=== PATIENT | female | born 1945 | race Caucasian/White ===

== ENCOUNTER 2017-10-14 10:21 | Day surgery (SDC) | payer MEDICARE ==
[~2017-10-14] VITALS: Ht 182.9 cm; Wt 96.8 kg
[2017-10-14] MEDS ORDERED: SODIUM CHLORIDE 0.9% 1,000 ML IV ONE (11:30)
[2017-10-14] MEDS ORDERED: METO25TA35 PO (11:38)
[2017-10-14] MEDS ORDERED: TAMO20TA PO (11:38)
[2017-10-14] MEDS ORDERED: BUME0.5T PO (11:38)
[2017-10-14] MEDS ORDERED: SPIR25TA3 PO (11:38)
[2017-10-14] MEDS ORDERED: APIX5TAB PO (11:38)
[2017-10-14] MEDS ORDERED: POTA10CA PO (11:38)
[2017-10-14] MEDS ORDERED: FENT-58 TP (11:38)
[2017-10-14] MEDS ORDERED: VENL150C PO (11:38)
[2017-10-14] MEDS ORDERED: TIZA4CAP PO (11:38)
[2017-10-14] MEDS ORDERED: PROPOFOL 10 MG/ML, 20ML ONE (12:42)
== END 2017-10-14 14:20 ==
LOC: CACL 10:21 → EDSTATUS 12:15 → CACL 14:20
PROVIDERS: ATTEND Internal Medicine Cardiovascular Disease
DX: I34.0 Nonrheumatic mitral (valve) insufficiency (principal); I07.1 Rheumatic tricuspid insufficiency; F32.9 Major depressive disorder, single episode, unspecified; Z88.1 Allergy status to other antibiotic agents; Z88.8 Allergy status to other drugs, medicaments and biological substances
CPT/HCPCS: 93312; 93321; 93325; J2704

== ENCOUNTER 2017-11-09 10:05 | Day surgery (SDC) | payer MEDICARE ==
[~2017-11-09] VITALS: Ht 180.3 cm; Wt 93.0 kg
[~2017-11-09 10:05] MED LIST: APIX5TAB PO; BUME0.5T PO; FENT-58 TP; METO25TA35 PO; POTA10CA PO; SPIR25TA3 PO; TAMO20TA PO; TIZA4CAP PO; VENL150C PO
[2017-11-09] MEDS ORDERED: LIDOCAINE-MPF 2% ,5ML ONE (10:55)
[2017-11-09] MEDS ORDERED: MIDAZOLAM 1 MG/ML, 5ML ONE (10:55)
[2017-11-09] MEDS ORDERED: DIPHENHYDRAMINE 50 MG/ML, 1ML ONE (10:55)
[2017-11-09] MEDS ORDERED: FENTANYL PF 100 MCG/2ML ONE (10:55)
[2017-11-09] MEDS ORDERED: SODIUM CHLORIDE 0.9% 1,000 ML IV ONE (10:58)
[2017-11-09] MEDS ORDERED: ASPIRIN 325 MG TABLET EC PO ONE (11:00)
[2017-11-09 11:17] VITALS: BP 96/74
[2017-11-09] MEDS ORDERED: PLEASE ENTER HEIGHT AND WEIGHT MC SCH (11:30)
== END 2017-11-09 12:45 | disposition home or self-care (01) ==
LOC: CACL 10:05
PROVIDERS: ATTEND Internal Medicine Cardiovascular Disease
DX: Z02.9 Encounter for administrative examinations, unspecified (principal)
CPT/HCPCS: J2250; J3010; J3490; J1200

== ENCOUNTER 2018-01-10 11:00 | Inpatient (IN) | payer MEDICARE ==
[~2018-01-10] VITALS: Ht 177.8 cm; Wt 102.6 kg
[2018-01-10 12:15] VITALS: BP 102/71
[2018-01-10 12:51] VITALS: BP 111/76
[2018-01-10] MEDS: FENTANYL REMOVE PATCH NOTE XX SCH (13:21)
[2018-01-10] MEDS ORDERED: SODIUM BICARBONATE 8.4% 154 MEQ in DEXTROSE 5% 846 ML IV SCH (13:30)
[2018-01-10] MEDS ORDERED: GLUCAGON 1 MG IM PRN (14:00)
[2018-01-10] MEDS ORDERED: DEXTROSE 4 GM TAB.CHEW PO PRN (14:00)
[2018-01-10] MEDS ORDERED: DEXTROSE 50%, 50ML SYRINGE IVPush PRN (14:00)
[2018-01-10] MEDS: TIZANIDINE 4MG TABLET PO SCH ×2 (15:41→22:05)
[2018-01-10] MEDS: SODIUM BICARBONATE 8.4% 154 MEQ in DEXTROSE 5% 846 ML IV SCH (17:15)
[2018-01-10 20:00] VITALS: BP 102/66
[2018-01-10] MEDS: BUMETANIDE 1 MG TABLET PO SCH (20:40)
[2018-01-10] MEDS: METOPROLOL TARTRATE 50 MG TABLET PO SCH (20:40)
[2018-01-10] MEDS: SPIRONOLACTONE 25 MG TABLET PO SCH (20:41)
[2018-01-10] MEDS: SODIUM CHLORIDE FLUSH 10ML SYR IVF SCH (21:00)
[2018-01-10] MEDS: OXYcodone/APAP 5/325MG TABLET PO PRN (22:04)
[2018-01-10] MEDS: VENLAFAXINE 75 MG CAP ER PO SCH (22:04)
[2018-01-11 02:00] VITALS: BP 96/62
[2018-01-11] MEDS: SODIUM BICARBONATE 8.4% 154 MEQ in DEXTROSE 5% 846 ML IV SCH (05:29)
[2018-01-11 07:29] VITALS: BP 97/63
[2018-01-11] MEDS ORDERED: VENLAFAXINE 75 MG CAP ER PO SCH (09:00)
[2018-01-11] MEDS: TIZANIDINE 4MG TABLET PO SCH ×3 (09:05→21:35)
[2018-01-11] MEDS: CHOLECALCIFEROL 1,000 UNIT TABLET PO SCH (09:05)
[2018-01-11] MEDS: METOPROLOL TARTRATE 50 MG TABLET PO SCH ×2 (09:08→21:35)
[2018-01-11] MEDS: BUMETANIDE 1 MG TABLET PO SCH ×2 (09:08→21:40)
[2018-01-11] MEDS: PANTOPROZOLE 40MG TABLET PO SCH (09:09)
[2018-01-11] MEDS: OXYcodone/APAP 5/325MG TABLET PO PRN ×2 (09:09→21:35)
[2018-01-11] MEDS: SPIRONOLACTONE 25 MG TABLET PO SCH ×2 (09:09→21:34)
[2018-01-11] MEDS: SODIUM CHLORIDE FLUSH 10ML SYR IVF SCH ×3 (09:13→21:34)
[2018-01-11] MEDS: TAMOXIFEN 10 MG TABLET PO SCH (09:48)
[2018-01-11] MEDS ORDERED: CHLORHEXIDINE 15 ML BOTTLE MM PRN (11:00)
[2018-01-11] MEDS ORDERED: INSULIN LISPRO 100 UNITS/ML, PEN SQ-INSULIN SCH (11:00)
[2018-01-11 12:49] LABS: ALBUMIN 3.2 g/dL (3.4-5.0); ANION GAP 7 mmol/L (5-15); CALCIUM 8.9 mg/dL (8.5-10.1); CHLORIDE 96 mmol/L (98-107)
[2018-01-11 12:54] LABS: ALANINE AMINOTRANSFERASE 13 U/L (12-78); ALKALINE PHOSPHATASE 66 U/L (45-117); BILIRUBIN,TOTAL 0.9 mg/dL (0.2-1.0); CREATININE 1.89 mg/dL (0.55-1.02); TOTAL PROTEIN 6.7 g/dL (6.4-8.2)
[2018-01-11 12:59] LABS: HEMOGLOBIN A1C 5.2 % (4.2-6.3)
[2018-01-11 13:01] LABS: MICROSCOPIC NOT IND
[2018-01-11 13:47] LABS: HEMOGLOBIN A1C 5.2 % (4.2-6.3)
[2018-01-11 13:49] LABS: MEAN CORPUSCULAR HEMOGLOBIN 33.2 pg (27.0-34.8); MEAN CORPUSCULAR HGB CONC 33.3 g/dL (32.4-35.8); MEAN CORPUSCULAR VOLUME 99.7 fL (80-100); MEAN PLATELET VOLUME 9.6 fL (7.4-10.4); PLATELET COUNT 177 x10^3/uL (130-400); RED BLOOD COUNT 3.42 x10^6/uL (3.82-5.3); RED CELL DISTRIBUTION WIDTH 13.6 % (9.6-15.2)
[2018-01-11 13:55] VITALS: BP 95/66
[2018-01-11] MEDS ORDERED: hydrALAzine 20 MG/ML, 1ML IVPush PRN (14:00)
[2018-01-11] MEDS ORDERED: MORPHINE SULFATE 4 MG/ML, 1ML IVPush PRN (14:00)
[2018-01-11] MEDS ORDERED: DOCUSATE 100 MG CAPSULE PO PRN (14:00)
[2018-01-11] MEDS ORDERED: POLYETHYLENE GLYCOL 17 GM PACKET PO PRN (14:00)
[2018-01-11] MEDS ORDERED: BISACODYL 10 MG SUPP PR PRN (14:00)
[2018-01-11] MEDS ORDERED: ONDANSETRON ODT 4 MG PO PRN (14:00)
[2018-01-11] MEDS ORDERED: ACETAMINOPHEN 325 MG TABLET PO PRN (14:00)
[2018-01-11] MEDS ORDERED: ONDANSETRON 2MG/ML, 2ML IVPush PRN (14:00)
[2018-01-11 14:13] LABS: INTERNATIONAL NORMALIZED RATIO 1.09 (0.93-1.1); PROTHROMBIN TIME 11.2 Seconds (9.6-11.5)
[2018-01-11 14:22] LABS: MD YES
[2018-01-11 14:24] LABS: BASOPHILS # (AUTO) 0.02 x10^3/uL (0-0.1); BASOPHILS % (AUTO) 1 % (0-1); EOSINOPHILS # (AUTO) 0.02 x10^3/uL (0-0.4); EOSINOPHILS % (AUTO) 0 % (1-7); LYMPHOCYTES # (AUTO) 1.36 x10^3/uL (1-3.4); LYMPHOCYTES % (AUTO) 34 % (22-44); MD NO; MEAN CORPUSCULAR HEMOGLOBIN 32.9 pg (27.0-34.8); MEAN CORPUSCULAR HGB CONC 32.6 g/dL (32.4-35.8); MEAN CORPUSCULAR VOLUME 100.9 fL (80-100); MEAN PLATELET VOLUME 9.2 fL (7.4-10.4); MONOCYTES # (AUTO) 0.24 x10^3/uL (0.2-0.8); MONOCYTES % (AUTO) 6 % (2-9); NEUTROPHILS # (AUTO) 2.36 x10^3/uL (1.8-6.8); NEUTROPHILS % (AUTO) 59 % (42-75); PLATELET COUNT 187 x10^3/uL (130-400); RED BLOOD COUNT 3.44 x10^6/uL (3.82-5.3); RED CELL DISTRIBUTION WIDTH 13.9 % (9.6-15.2)
[2018-01-11 14:30] LABS: BASOS#(MANUAL) 0.04 x10^3/uL (0-0.1); BASOS% (MANUAL) 1 % (0-1); LYMPH#(MANUAL) 1.42 x10^3/uL (1-3.4); LYMPHS% (MANUAL) 33 % (22-44); MONOS#(MANUAL) 0.17 x10^3/uL (0.3-2.7); MONOS% (MANUAL) 4 % (2-9); REACTIVE LYMPHS # (MANUAL) 0.09 x10^3/uL (0-0); REACTIVE LYMPHS % (MANUAL) 2 % (0-0); SEG#(MANUAL) 2.58 x10^3/uL (1.8-6.8); SEGS% (MANUAL) 60 % (42-75)
[2018-01-11 14:32] LABS: <RBC MORPHOLOGY> NORMAL
[2018-01-11 14:33] LABS: <PLATELET ESTIMATE> ADEQUATE; LARGE PLATELETS 1+
[2018-01-11 14:43] LABS: FREE T4 (FREE THYROXINE) 1.04 ng/dL (0.76-1.46); THYROID STIMULATING HORMONE 3.22 mIU/L (0.358-3.740)
[2018-01-11] MEDS ORDERED: VERAPAMIL 2.5 MG/ML, 2ML ONE (15:22)
[2018-01-11] MEDS ORDERED: FENTANYL PF 100 MCG/2ML ONE (15:22)
[2018-01-11] MEDS ORDERED: MIDAZOLAM 1 MG/ML, 5ML ONE (15:22)
[2018-01-11] MEDS ORDERED: HEPARIN 1,000 UNITS/ML, 10ML ONE (15:22)
[2018-01-11 15:31] LABS: HEMOGLOBIN A1C 5.4 % (4.2-6.3)
[2018-01-11] MEDS ORDERED: HEPARIN 5,000 UNITS/ML, 1ML IV PRN (16:00)
[2018-01-11] MEDS ORDERED: HEPARIN 5,000 UNITS/ML, 1ML IV ONE (16:00)
[2018-01-11] MEDS: SODIUM CHLORIDE 0.9% 1,000 ML IV SCH (16:20)
[2018-01-11] MEDS: OXYcodone IR 5MG TABLET PO PRN (17:08)
[2018-01-11] MEDS: HEPARIN 25,000 UNITS/500ML PMX 500 ML IV PRN (18:35)
[2018-01-11 18:51] VITALS: BP 101/67
[2018-01-11] MEDS: MUPIROCIN OINT 2%, 22GM TP SCH (21:00)
[2018-01-11 21:32] VITALS: BP 103/72
[2018-01-11] MEDS: VENLAFAXINE 75 MG CAP ER PO SCH (21:34)
[2018-01-12] MEDS: SODIUM CHLORIDE 0.9% 1,000 ML IV SCH ×2 (00:20→08:01)
[2018-01-12 00:39] VITALS: BP 106/68
[2018-01-12] MEDS ORDERED: CEFUROXIME 1.5 GM in SODIUM CHLORIDE 0.9% 50 ML IVPB PRN (07:30)
[2018-01-12] MEDS ORDERED: VANCOMYCIN 1,400 MG in SODIUM CHLORIDE 0.9% 250 ML IVPB PRN (07:30)
[2018-01-12] MEDS: MUPIROCIN OINT 2%, 22GM TP SCH ×2 (07:59→21:00)
[2018-01-12] MEDS ORDERED: CHLORHEXIDINE 15 ML BOTTLE MM PRN (08:00)
[2018-01-12] MEDS ORDERED: INSULIN LISPRO 100 UNITS/ML, PEN SQ-INSULIN SCH (08:00)
[2018-01-12 08:08] LABS: BASOPHILS # (AUTO) 0.03 x10^3/uL (0-0.1); BASOPHILS % (AUTO) 1 % (0-1); EOSINOPHILS # (AUTO) 0.02 x10^3/uL (0-0.4); EOSINOPHILS % (AUTO) 1 % (1-7); LYMPHOCYTES # (AUTO) 1.54 x10^3/uL (1-3.4); LYMPHOCYTES % (AUTO) 33 % (22-44); MD NO; MEAN CORPUSCULAR HEMOGLOBIN 32.6 pg (27.0-34.8); MEAN CORPUSCULAR HGB CONC 32.2 g/dL (32.4-35.8); MEAN CORPUSCULAR VOLUME 101.1 fL (80-100); MEAN PLATELET VOLUME 9.5 fL (7.4-10.4); MONOCYTES # (AUTO) 0.33 x10^3/uL (0.2-0.8); MONOCYTES % (AUTO) 7 % (2-9); NEUTROPHILS # (AUTO) 2.76 x10^3/uL (1.8-6.8); NEUTROPHILS % (AUTO) 59 % (42-75); PLATELET COUNT 176 x10^3/uL (130-400); RED BLOOD COUNT 3.52 x10^6/uL (3.82-5.3); RED CELL DISTRIBUTION WIDTH 14.1 % (9.6-15.2)
[2018-01-12 08:09] VITALS: BP 107/73
[2018-01-12 08:15] LABS: INTERNATIONAL NORMALIZED RATIO 1.11 (0.93-1.1); PROTHROMBIN TIME 11.4 Seconds (9.6-11.5)
[2018-01-12 08:18] LABS: ALANINE AMINOTRANSFERASE 12 U/L (12-78); ANION GAP 7 mmol/L (5-15); CALCIUM 8.3 mg/dL (8.5-10.1); CHLORIDE 99 mmol/L (98-107); CREATININE 1.81 mg/dL (0.55-1.02)
[2018-01-12 08:20] LABS: ALKALINE PHOSPHATASE 65 U/L (45-117); BILIRUBIN,TOTAL 0.8 mg/dL (0.2-1.0); TOTAL PROTEIN 6.3 g/dL (6.4-8.2)
[2018-01-12 08:34] LABS: HEMOGLOBIN A1C 5.3 % (4.2-6.3)
[2018-01-12] MEDS: SODIUM CHLORIDE FLUSH 10ML SYR IVF SCH ×5 (09:00→22:01)
[2018-01-12] MEDS: CHOLECALCIFEROL 1,000 UNIT TABLET PO SCH (09:21)
[2018-01-12] MEDS: METOPROLOL TARTRATE 50 MG TABLET PO SCH ×2 (09:21→22:23)
[2018-01-12] MEDS: POTASSIUM CHLORIDE 20 MEQ TAB.ER.PRT PO SCH (09:21)
[2018-01-12] MEDS: TIZANIDINE 4MG TABLET PO SCH ×3 (09:21→21:00)
[2018-01-12] MEDS: SPIRONOLACTONE 25 MG TABLET PO SCH ×2 (09:21→21:00)
[2018-01-12] MEDS: PANTOPROZOLE 40MG TABLET PO SCH (09:22)
[2018-01-12] MEDS: BUMETANIDE 1 MG TABLET PO SCH ×2 (09:22→22:23)
[2018-01-12] MEDS: OXYcodone IR 5MG TABLET PO PRN ×2 (09:49→16:51)
[2018-01-12] MEDS: LACTOBACILLUS CHEW TABLET PO SCH ×3 (11:45→16:51)
[2018-01-12] MEDS: TAMOXIFEN 10 MG TABLET PO SCH (12:47)
[2018-01-12 14:00] VITALS: BP 89/58
[2018-01-12 14:32] VITALS: BP 99/71
[2018-01-12] MEDS ORDERED: FENTANYL 50 MCG PATCH ONE (16:39)
[2018-01-12] MEDS: FENTANYL 50 MCG PATCH TD SCH (16:52)
[2018-01-12 19:46] VITALS: BP 89/60
[2018-01-12] MEDS ORDERED: TIZANIDINE 2MG TABLET ONE ×2 (21:27→21:31)
[2018-01-12] MEDS: VENLAFAXINE 75 MG CAP ER PO SCH (21:59)
[2018-01-12 22:12] VITALS: BP 94/64
[2018-01-12] MEDS: HEPARIN 25,000 UNITS/500ML PMX 500 ML IV PRN (22:22)
[2018-01-12] MEDS: OXYcodone/APAP 5/325MG TABLET PO PRN (22:23)
[2018-01-13 02:00] VITALS: BP 91/59
[2018-01-13] MEDS: MUPIROCIN OINT 2%, 22GM TP SCH (04:56)
[2018-01-13 04:59] VITALS: BP 95/67
[2018-01-13 05:40] LABS: CHLORIDE 96 mmol/L (98-107)
[2018-01-13 05:47] LABS: ANION GAP 10 mmol/L (5-15); CALCIUM 8.8 mg/dL (8.5-10.1); CREATININE 2.04 mg/dL (0.55-1.02)
[2018-01-13] MEDS ORDERED: FENTANYL PF 250 MCG/5ML ONE ×5 (06:37→10:33)
[2018-01-13] MEDS ORDERED: MIDAZOLAM 10MG/2 ML ONE (06:37)
[2018-01-13] MEDS ORDERED: CALCIUM CHLORIDE 10%, 10ML SYR ONE (06:39)
[2018-01-13] MEDS ORDERED: AMINOCAPROIC ACID 250 MG/ML, 20ML ONE ×3 (06:40→11:59)
[2018-01-13] MEDS ORDERED: ALBUMIN HUMAN 5% 500 ML IV PRN (07:30)
[2018-01-13] MEDS ORDERED: DEXMEDETOMIDINE 200 MCG in SODIUM CHLORIDE 0.9% 48 ML IV SCH (07:30)
[2018-01-13] MEDS ORDERED: CEFUROXIME 1.5 GM in SODIUM CHLORIDE 0.9% 50 ML IVPB PRN (07:30)
[2018-01-13] MEDS ORDERED: PHENYLEPHRINE 10 MG in SODIUM CHLORIDE 0.9% 249 ML IV PRN ×2 (07:30→12:01)
[2018-01-13] MEDS ORDERED: REGULAR INSULIN 62.5 UNITS in SODIUM CHLORIDE 0.9% 249.375 ML IV PRN ×2 (07:30→12:01)
[2018-01-13] MEDS ORDERED: EPINEPHRINE 2 MG in SODIUM CHLORIDE 0.9% 248 ML IV SCH (07:30)
[2018-01-13] MEDS ORDERED: MANNITOL PMX 20% 500 ML IVPB PRN (07:30)
[2018-01-13] MEDS ORDERED: VANCOMYCIN 1,400 MG in SODIUM CHLORIDE 0.9% 250 ML IVPB PRN (07:30)
[2018-01-13] MEDS ORDERED: POTASSIUM CHLORIDE 80 MEQ, SODIUM BICARBONATE 8.4% 10 MEQ, MAGNESIUM SULFATE 0.5 GM, LI... IV PRN (07:30)
[2018-01-13] MEDS: LACTOBACILLUS CHEW TABLET PO SCH ×3 (08:00→15:41)
[2018-01-13] MEDS ORDERED: FENTANYL 50 MCG PATCH TD SCH (09:00)
[2018-01-13] MEDS: IRON SUCROSE COMPLEX 100MG/5ML IV SCH (09:00)
[2018-01-13] MEDS: SODIUM CHLORIDE FLUSH 10ML SYR IVF SCH ×3 (09:00→21:05)
[2018-01-13] MEDS: TAMOXIFEN 10 MG TABLET PO SCH (09:00)
[2018-01-13] MEDS: DOCUSATE 100 MG CAPSULE PO SCH ×2 (09:00→21:23)
[2018-01-13] MEDS: TIZANIDINE 4MG TABLET PO SCH ×3 (09:00→21:23)
[2018-01-13] MEDS ORDERED: PROPOFOL 10 MG/ML, 20ML ONE ×6 (09:02)
[2018-01-13] MEDS ORDERED: MAGNESIUM SULFATE PMX 2GM/50ML 50 ML ONE (11:44)
[2018-01-13] MEDS ORDERED: POTASSIUM CHLORIDE 40MEQ/20ML IV ONE (11:50)
[2018-01-13] MEDS ORDERED: POTASSIUM CHLORIDE 40 MEQ in SODIUM CHLORIDE 0.9% 500 ML IV ONE (12:00)
[2018-01-13] MEDS ORDERED: DOBUTAMINE 250 MG in SODIUM CHLORIDE 0.9% 230 ML IV PRN (12:01)
[2018-01-13] MEDS ORDERED: SODIUM CHLORIDE 0.9% 1,000 ML IV PRN (12:01)
[2018-01-13] MEDS ORDERED: VASOPRESSIN 50 UNIT in SODIUM CHLORIDE 0.9% 247.5 ML IV PRN (12:01)
[2018-01-13] MEDS ORDERED: NITROGLYCERIN/D5W PMX 250 ML IV PRN (12:01)
[2018-01-13] MEDS ORDERED: DEXMEDETOMIDINE 200 MCG in SODIUM CHLORIDE 0.9% 48 ML IV PRN (12:01)
[2018-01-13] MEDS ORDERED: methylPREDNISolone SOD SUCC 125 MG/2 ML ONE (12:27)
[2018-01-13] MEDS ORDERED: LIDOCAINE 2% 100MG/5ML SYRINGE ONE (12:27)
[2018-01-13] MEDS ORDERED: PHENYLEPHRINE 10 MG/ML ONE (12:27)
[2018-01-13] MEDS ORDERED: SODIUM BICARBONATE 1 MEQ/ML, 50ML VIAL ONE (12:27)
[2018-01-13] MEDS ORDERED: ALBUMIN HUMAN 25% 50 ML ONE (12:28)
[2018-01-13] MEDS ORDERED: HEPARIN 1,000 UNITS/ML, 30ML ONE (12:28)
[2018-01-13] MEDS ORDERED: HYDROcodone/APAP 10/325 MG TABLET PO PRN (12:30)
[2018-01-13] MEDS ORDERED: HYDROcodone/APAP 5/325 TABLET PO PRN (12:30)
[2018-01-13] MEDS ORDERED: ACETAMINOPHEN 650 MG SUPP PR PRN (12:30)
[2018-01-13] MEDS ORDERED: LACTATED RINGERS 1,000 ML IV PRN (12:30)
[2018-01-13] MEDS ORDERED: morphine SULFATE 10 MG/ML, 1ML IVPush PRN (12:30)
[2018-01-13] MEDS ORDERED: ACETAMINOPHEN 325 MG TABLET PO PRN (12:30)
[2018-01-13] MEDS ORDERED: INSULIN REGULAR 100 UNITS/ML, 3ML VIAL IVPush PRN (12:30)
[2018-01-13] MEDS ORDERED: GLUCAGON 1 MG IM PRN (12:30)
[2018-01-13] MEDS ORDERED: ONDANSETRON 2MG/ML, 2ML IVPush PRN (12:30)
[2018-01-13] MEDS ORDERED: DEXTROSE 50%, 50ML SYRINGE IVPush PRN (12:30)
[2018-01-13] MEDS ORDERED: PROCHLORPERAZINE 5 MG/ML, 2ML IVPush PRN (12:30)
[2018-01-13] MEDS: KSCALE TO 4.5 IV SCH ×2 (12:30→18:30)
[2018-01-13] MEDS ORDERED: SODIUM BICARB 8.4%, 50ML SYRINGE IV PRN (12:30)
[2018-01-13] MEDS ORDERED: BISACODYL 5 MG EC TABLET PO PRN (12:30)
[2018-01-13] MEDS ORDERED: DEXTROSE 4 GM TAB.CHEW PO PRN (12:30)
[2018-01-13] MEDS ORDERED: MAGNESIUM SULFATE 1 GM in SODIUM CHLORIDE 0.9% 50 ML IVPB SCH (12:30)
[2018-01-13] MEDS ORDERED: BISACODYL 10 MG SUPP PR PRN (12:30)
[2018-01-13] MEDS ORDERED: MIDAZOLAM 1 MG/ML, 5ML IVPush PRN (12:30)
[2018-01-13] MEDS ORDERED: FENTANYL PF 100 MCG/2ML IVPush PRN (12:30)
[2018-01-13 12:37] LABS: GLUCOSE BY BLOOD GAS ANALYZER 118 mg/dL (70-110); HEMOGLOBIN BY BLOOD GAS ANALYZ 11.6 g/dL (14.0-18.0); POTASSIUM BY BLOOD GAS ANALYZR 4.5 mmol/L (3.6-5.5)
[2018-01-13] MEDS: MAGNESIUM SULFATE 1 GM in SODIUM CHLORIDE 0.9% 25 ML IVPB SCH (13:00)
[2018-01-13 13:27] LABS: INTERNATIONAL NORMALIZED RATIO 1.24 (0.93-1.1); PROTHROMBIN TIME 12.7 Seconds (9.6-11.5)
[2018-01-13] MEDS: CEFUROXIME 1.5 GM in SODIUM CHLORIDE 0.9% 50 ML IVPB SCH (13:28)
[2018-01-13] MEDS: VANCOMYCIN 1,400 MG in SODIUM CHLORIDE 0.9% 250 ML IVPB SCH (13:28)
[2018-01-13] MEDS: INSULIN LISPRO 100 UNITS/ML, PEN SQ-INSULIN SCH ×2 (15:41→21:00)
[2018-01-13] MEDS: EPINEPHRINE 2 MG in SODIUM CHLORIDE 0.9% 248 ML IV PRN (19:05)
[2018-01-13] MEDS ORDERED: POTASSIUM CHLORIDE PMX 100 ML IV ONE (19:30)
[2018-01-13] MEDS: OXYcodone IR 5MG TABLET PO PRN ×2 (20:21→23:59)
[2018-01-13] MEDS: MUPIROCIN OINT 2%, 22GM NAS SCH (21:05)
[2018-01-13] MEDS: VENLAFAXINE 75 MG CAP ER PO SCH (21:23)
[2018-01-14] MEDS: KSCALE TO 4.5 IV SCH ×2 (00:30→06:04)
[2018-01-14] MEDS: CEFUROXIME 1.5 GM in SODIUM CHLORIDE 0.9% 50 ML IVPB SCH (00:32)
[2018-01-14] MEDS: VANCOMYCIN 1,400 MG in SODIUM CHLORIDE 0.9% 250 ML IVPB SCH (00:32)
[2018-01-14] MEDS ORDERED: POTASSIUM CHLORIDE PMX 100 ML IV ONE (01:00)
[2018-01-14] MEDS ORDERED: MORPHINE SULFATE 4 MG/ML, 1ML ONE (03:11)
[2018-01-14] MEDS ORDERED: MORPHINE SULFATE 4 MG/ML, 1ML IVPush PRN (03:19)
[2018-01-14 04:00] VITALS: BP 116/72
[2018-01-14] MEDS: INSULIN LISPRO 100 UNITS/ML, PEN SQ-INSULIN SCH ×4 (04:23→21:13)
[2018-01-14 05:18] LABS: INTERNATIONAL NORMALIZED RATIO 1.11 (0.93-1.1); PROTHROMBIN TIME 11.4 Seconds (9.6-11.5)
[2018-01-14 05:25] LABS: ANION GAP 11 mmol/L (5-15); CALCIUM 8.7 mg/dL (8.5-10.1); CHLORIDE 105 mmol/L (98-107)
[2018-01-14 05:26] LABS: CREATININE 1.88 mg/dL (0.55-1.02)
[2018-01-14] MEDS: OXYcodone IR 5MG TABLET PO PRN ×4 (05:30→21:11)
[2018-01-14 05:37] LABS: MEAN CORPUSCULAR HEMOGLOBIN 33.8 pg (27.0-34.8); MEAN CORPUSCULAR HGB CONC 33.3 g/dL (32.4-35.8); MEAN CORPUSCULAR VOLUME 101.3 fL (80-100); MEAN PLATELET VOLUME 10.1 fL (7.4-10.4); PLATELET COUNT 144 x10^3/uL (130-400); RED BLOOD COUNT 3.08 x10^6/uL (3.82-5.3); RED CELL DISTRIBUTION WIDTH 13.9 % (9.6-15.2)
[2018-01-14] MEDS: EPINEPHRINE 2 MG in SODIUM CHLORIDE 0.9% 248 ML IV PRN ×2 (05:58→12:51)
[2018-01-14 06:06] LABS: BASOPHILS # (AUTO) 0.04 x10^3/uL (0-0.1); BASOPHILS % (AUTO) 0 % (0-1); EOSINOPHILS % (AUTO) 0 % (1-7); LYMPHOCYTES # (AUTO) 0.52 x10^3/uL (1-3.4); LYMPHOCYTES % (AUTO) 3 % (22-44); MD SCAN; MONOCYTES % (AUTO) 6 % (2-9); NEUTROPHILS # (AUTO) 17.28 x10^3/uL (1.8-6.8); NEUTROPHILS % (AUTO) 91 % (42-75)
[2018-01-14] MEDS: METOPROLOL TARTRATE 25 MG TABLET PO/NG SCH ×2 (09:00→21:00)
[2018-01-14] MEDS: SODIUM CHLORIDE FLUSH 10ML SYR IVF SCH ×4 (09:00→21:06)
[2018-01-14] MEDS: WARFARIN BIOPROSTHETIC VALVE PROTOCOL 2-3 XX SCH (09:00)
[2018-01-14] MEDS: LACTOBACILLUS CHEW TABLET PO SCH ×3 (09:28→17:07)
[2018-01-14] MEDS: ASPIRIN 81 MG TABLET EC PO SCH (09:28)
[2018-01-14] MEDS: TIZANIDINE 4MG TABLET PO SCH ×3 (09:28→21:10)
[2018-01-14] MEDS: IRON SUCROSE COMPLEX 100MG/5ML IV SCH (09:28)
[2018-01-14] MEDS: DOCUSATE 100 MG CAPSULE PO SCH ×2 (09:28→21:10)
[2018-01-14] MEDS ORDERED: FUROSEMIDE 20 MG/2 ML IV ONE (09:30)
[2018-01-14] MEDS: POTASSIUM CHLORIDE 20 MEQ TAB.ER.PRT PO SCH (10:08)
[2018-01-14] MEDS: TAMOXIFEN 10 MG TABLET PO SCH (10:11)
[2018-01-14] MEDS: MUPIROCIN OINT 2%, 22GM NAS SCH ×2 (10:12→21:06)
[2018-01-14] MEDS: CHLORHEXIDINE 15 ML BOTTLE MM SCH (12:52)
[2018-01-14] MEDS: MAGNESIUM SULFATE 1 GM in SODIUM CHLORIDE 0.9% 25 ML IVPB SCH (12:54)
[2018-01-14] MEDS ORDERED: WARFARIN 5 MG TABLET PO-COUM SCH (18:00)
[2018-01-14] MEDS: VENLAFAXINE 75 MG CAP ER PO SCH (21:11)
[2018-01-15] MEDS: CHLORHEXIDINE 15 ML BOTTLE MM SCH ×2 (00:03→13:29)
[2018-01-15] MEDS: OXYcodone IR 5MG TABLET PO PRN ×3 (04:15→14:41)
[2018-01-15 04:30] VITALS: BP 102/52
[2018-01-15 04:54] LABS: MEAN CORPUSCULAR HEMOGLOBIN 33.7 pg (27.0-34.8); MEAN CORPUSCULAR HGB CONC 32.9 g/dL (32.4-35.8); MEAN CORPUSCULAR VOLUME 102.3 fL (80-100); RED BLOOD COUNT 2.77 x10^6/uL (3.82-5.3); RED CELL DISTRIBUTION WIDTH 14.2 % (9.6-15.2)
[2018-01-15 04:55] LABS: INTERNATIONAL NORMALIZED RATIO 1.11 (0.93-1.1); PROTHROMBIN TIME 11.4 Seconds (9.6-11.5)
[2018-01-15 04:58] LABS: ANION GAP 8 mmol/L (5-15); CALCIUM 8.2 mg/dL (8.5-10.1); CHLORIDE 102 mmol/L (98-107); CREATININE 1.56 mg/dL (0.55-1.02)
[2018-01-15 06:17] LABS: BASOPHILS # (AUTO) 0.01 x10^3/uL (0-0.1); BASOPHILS % (AUTO) 0 % (0-1); EOSINOPHILS % (AUTO) 0 % (1-7); LYMPHOCYTES # (AUTO) 1.23 x10^3/uL (1-3.4); LYMPHOCYTES % (AUTO) 9 % (22-44); MD SCAN; MEAN PLATELET VOLUME 9.9 fL (7.4-10.4); MONOCYTES # (AUTO) 0.74 x10^3/uL (0.2-0.8); MONOCYTES % (AUTO) 6 % (2-9); NEUTROPHILS # (AUTO) 11.52 x10^3/uL (1.8-6.8); NEUTROPHILS % (AUTO) 85 % (42-75); PLATELET COUNT 84 x10^3/uL (130-400)
[2018-01-15] MEDS: INSULIN LISPRO 100 UNITS/ML, PEN SQ-INSULIN SCH ×4 (07:00→21:00)
[2018-01-15] MEDS: TAMOXIFEN 10 MG TABLET PO SCH (09:02)
[2018-01-15] MEDS: SODIUM CHLORIDE FLUSH 10ML SYR IVF SCH ×3 (09:16→20:47)
[2018-01-15] MEDS: ASPIRIN 81 MG TABLET EC PO SCH (09:16)
[2018-01-15] MEDS: LACTOBACILLUS CHEW TABLET PO SCH ×3 (09:16→17:30)
[2018-01-15] MEDS: IRON SUCROSE COMPLEX 100MG/5ML IV SCH (09:16)
[2018-01-15] MEDS: DOCUSATE 100 MG CAPSULE PO SCH ×2 (09:16→20:48)
[2018-01-15] MEDS: TIZANIDINE 4MG TABLET PO SCH ×3 (09:16→20:49)
[2018-01-15] MEDS: MUPIROCIN OINT 2%, 22GM NAS SCH ×2 (09:17→20:48)
[2018-01-15] MEDS: WARFARIN BIOPROSTHETIC VALVE PROTOCOL 2-3 XX SCH (09:21)
[2018-01-15 14:18] VITALS: BP 113/75
[2018-01-15] MEDS ORDERED: TIZANIDINE 2MG TABLET ONE ×2 (14:39→20:40)
[2018-01-15] MEDS: MAGNESIUM SULFATE 1 GM in SODIUM CHLORIDE 0.9% 48 ML IVPB SCH (14:47)
[2018-01-15] MEDS: FENTANYL REMOVE PATCH NOTE XX SCH (16:40)
[2018-01-15] MEDS: FENTANYL 50 MCG PATCH TD SCH (17:31)
[2018-01-15] MEDS ORDERED: WARFARIN 5 MG TABLET PO-COUM SCH (18:00)
[2018-01-15 18:58] VITALS: BP 91/60
[2018-01-15] MEDS: VENLAFAXINE 75 MG CAP ER PO SCH (20:50)
[2018-01-16] MEDS: CHLORHEXIDINE 15 ML BOTTLE MM SCH (01:21)
[2018-01-16 01:22] VITALS: BP 105/65
[2018-01-16] MEDS: OXYcodone IR 5MG TABLET PO PRN ×4 (01:33→22:41)
[2018-01-16 05:43] LABS: INTERNATIONAL NORMALIZED RATIO 1.22 (0.93-1.1); PROTHROMBIN TIME 12.5 Seconds (9.6-11.5)
[2018-01-16 05:47] LABS: ANION GAP 8 mmol/L (5-15); CALCIUM 8.6 mg/dL (8.5-10.1); CHLORIDE 102 mmol/L (98-107)
[2018-01-16 05:49] LABS: CREATININE 1.41 mg/dL (0.55-1.02)
[2018-01-16 06:19] LABS: BASOPHILS # (AUTO) 0.01 x10^3/uL (0-0.1); BASOPHILS % (AUTO) 0 % (0-1); EOSINOPHILS # (AUTO) 0.01 x10^3/uL (0-0.4); EOSINOPHILS % (AUTO) 0 % (1-7); LYMPHOCYTES # (AUTO) 1.03 x10^3/uL (1-3.4); LYMPHOCYTES % (AUTO) 11 % (22-44); MD SCAN; MEAN CORPUSCULAR HEMOGLOBIN 33.8 pg (27.0-34.8); MEAN CORPUSCULAR HGB CONC 33.1 g/dL (32.4-35.8); MEAN CORPUSCULAR VOLUME 101.9 fL (80-100); MEAN PLATELET VOLUME 10.4 fL (7.4-10.4); MONOCYTES # (AUTO) 0.57 x10^3/uL (0.2-0.8); MONOCYTES % (AUTO) 6 % (2-9); NEUTROPHILS # (AUTO) 7.83 x10^3/uL (1.8-6.8); NEUTROPHILS % (AUTO) 83 % (42-75); PLATELET COUNT 75 x10^3/uL (130-400); RED BLOOD COUNT 2.49 x10^6/uL (3.82-5.3); RED CELL DISTRIBUTION WIDTH 13.7 % (9.6-15.2)
[2018-01-16] MEDS: INSULIN LISPRO 100 UNITS/ML, PEN SQ-INSULIN SCH ×2 (07:00→11:00)
[2018-01-16 08:00] VITALS: BP 107/69
[2018-01-16] MEDS: DOCUSATE 100 MG CAPSULE PO SCH (08:28)
[2018-01-16] MEDS: LACTOBACILLUS CHEW TABLET PO SCH ×3 (08:28→17:22)
[2018-01-16] MEDS: POTASSIUM CHLORIDE 20 MEQ TAB.ER.PRT PO SCH (08:28)
[2018-01-16] MEDS: TIZANIDINE 4MG TABLET PO SCH ×3 (08:29→22:41)
[2018-01-16] MEDS: ASPIRIN 81 MG TABLET EC PO SCH (08:29)
[2018-01-16] MEDS: TAMOXIFEN 10 MG TABLET PO SCH (08:30)
[2018-01-16] MEDS: WARFARIN BIOPROSTHETIC VALVE PROTOCOL 2-3 XX SCH (08:31)
[2018-01-16] MEDS: SODIUM CHLORIDE FLUSH 10ML SYR IVF SCH ×2 (08:32→22:41)
[2018-01-16] MEDS: IRON SUCROSE COMPLEX 100MG/5ML IV SCH (08:32)
[2018-01-16] MEDS: MUPIROCIN OINT 2%, 22GM NAS SCH ×2 (08:34→22:42)
[2018-01-16] MEDS: MAGNESIUM SULFATE 1 GM in SODIUM CHLORIDE 0.9% 48 ML IVPB SCH (13:56)
[2018-01-16 14:00] VITALS: BP 99/64
[2018-01-16] MEDS ORDERED: WARFARIN 7.5 MG TABLET PO-COUM SCH (18:00)
[2018-01-16 19:41] VITALS: BP 88/53
[2018-01-16] MEDS ORDERED: TIZANIDINE 2MG TABLET ONE (21:25)
[2018-01-16] MEDS: VENLAFAXINE 75 MG CAP ER PO SCH (22:42)
[2018-01-16 22:58] VITALS: BP 113/74
[2018-01-17 01:45] VITALS: BP 96/61
[2018-01-17 04:11] LABS: MEAN CORPUSCULAR HEMOGLOBIN 33.4 pg (27.0-34.8); MEAN CORPUSCULAR HGB CONC 33.3 g/dL (32.4-35.8); MEAN CORPUSCULAR VOLUME 100.4 fL (80-100); MEAN PLATELET VOLUME 10.4 fL (7.4-10.4); PLATELET COUNT 87 x10^3/uL (130-400); RED BLOOD COUNT 2.46 x10^6/uL (3.82-5.3); RED CELL DISTRIBUTION WIDTH 13.6 % (9.6-15.2)
[2018-01-17 04:19] LABS: INTERNATIONAL NORMALIZED RATIO 1.32 (0.93-1.1); PROTHROMBIN TIME 13.5 Seconds (9.6-11.5)
[2018-01-17 04:20] LABS: ANION GAP 8 mmol/L (5-15); CALCIUM 8.4 mg/dL (8.5-10.1); CHLORIDE 103 mmol/L (98-107)
[2018-01-17 04:24] LABS: BASOPHILS # (AUTO) 0.04 x10^3/uL (0-0.1); BASOPHILS % (AUTO) 1 % (0-1); EOSINOPHILS # (AUTO) 0.03 x10^3/uL (0-0.4); EOSINOPHILS % (AUTO) 0 % (1-7); LYMPHOCYTES # (AUTO) 0.98 x10^3/uL (1-3.4); LYMPHOCYTES % (AUTO) 13 % (22-44); MD MORPH REVIEW ONLY; MONOCYTES # (AUTO) 0.49 x10^3/uL (0.2-0.8); MONOCYTES % (AUTO) 7 % (2-9); NEUTROPHILS # (AUTO) 5.88 x10^3/uL (1.8-6.8); NEUTROPHILS % (AUTO) 79 % (42-75)
[2018-01-17 04:25] LABS: <PLATELET ESTIMATE> DECREASED; ANISOCYTOSIS 1+; POLYCHROMASIA 1+
[2018-01-17 04:26] LABS: <PLT MORPHOLOGY> NORMAL PLT MORPH
[2018-01-17 06:40] VITALS: BP 94/57
[2018-01-17] MEDS: TIZANIDINE 4MG TABLET PO SCH ×3 (08:10→19:55)
[2018-01-17] MEDS: OXYcodone IR 5MG TABLET PO PRN ×3 (08:10→19:56)
[2018-01-17] MEDS: DOCUSATE 100 MG CAPSULE PO SCH (08:11)
[2018-01-17] MEDS: ASPIRIN 81 MG TABLET EC PO SCH (08:12)
[2018-01-17] MEDS: LACTOBACILLUS CHEW TABLET PO SCH ×3 (08:12→17:06)
[2018-01-17] MEDS: MUPIROCIN OINT 2%, 22GM NAS SCH ×2 (08:14→19:55)
[2018-01-17] MEDS: SODIUM CHLORIDE FLUSH 10ML SYR IVF SCH ×2 (08:15→19:55)
[2018-01-17] MEDS: TAMOXIFEN 10 MG TABLET PO SCH (08:20)
[2018-01-17] MEDS: WARFARIN BIOPROSTHETIC VALVE PROTOCOL 2-3 XX SCH (08:21)
[2018-01-17] MEDS ORDERED: CEFAZOLIN PMX 1GM/50ML 50 ML IVPB ONE (11:00)
[2018-01-17] MEDS ORDERED: CEFAZOLIN 1,000 MG ONE (12:57)
[2018-01-17] MEDS ORDERED: LIDOCAINE/PF 1%, 30ML ONE (12:57)
[2018-01-17] MEDS ORDERED: MIDAZOLAM 1 MG/ML, 2ML ONE (12:57)
[2018-01-17] MEDS ORDERED: CEFAZOLIN PMX 1GM/50ML 0 ML ONE (12:57)
[2018-01-17] MEDS ORDERED: FENTANYL PF 100 MCG/2ML ONE (12:57)
[2018-01-17 15:45] VITALS: BP 109/60
[2018-01-17] MEDS ORDERED: WARFARIN 10 MG TABLET PO-COUM ONE (18:00)
[2018-01-17 19:04] VITALS: BP 107/76
[2018-01-17] MEDS: VENLAFAXINE 75 MG CAP ER PO SCH (19:55)
[2018-01-17] MEDS ORDERED: CEFAZOLIN PMX 1GM/50ML 50 ML IVPB SCH (22:00)
[2018-01-18] MEDS: OXYcodone IR 5MG TABLET PO PRN ×5 (00:17→22:27)
[2018-01-18 01:23] VITALS: BP 108/73
[2018-01-18 05:33] LABS: BASOPHILS # (AUTO) 0.05 x10^3/uL (0-0.1); BASOPHILS % (AUTO) 1 % (0-1); EOSINOPHILS # (AUTO) 0.03 x10^3/uL (0-0.4); EOSINOPHILS % (AUTO) 0 % (1-7); LYMPHOCYTES # (AUTO) 1.04 x10^3/uL (1-3.4); LYMPHOCYTES % (AUTO) 15 % (22-44); MD NO; MEAN CORPUSCULAR HEMOGLOBIN 33.6 pg (27.0-34.8); MEAN CORPUSCULAR HGB CONC 33.3 g/dL (32.4-35.8); MEAN CORPUSCULAR VOLUME 100.9 fL (80-100); MEAN PLATELET VOLUME 10.3 fL (7.4-10.4); MONOCYTES # (AUTO) 0.59 x10^3/uL (0.2-0.8); MONOCYTES % (AUTO) 8 % (2-9); NEUTROPHILS # (AUTO) 5.27 x10^3/uL (1.8-6.8); NEUTROPHILS % (AUTO) 76 % (42-75); PLATELET COUNT 116 x10^3/uL (130-400); RED BLOOD COUNT 2.52 x10^6/uL (3.82-5.3); RED CELL DISTRIBUTION WIDTH 13.9 % (9.6-15.2)
[2018-01-18 05:37] LABS: INTERNATIONAL NORMALIZED RATIO 1.74 (0.93-1.1); PROTHROMBIN TIME 17.7 Seconds (9.6-11.5)
[2018-01-18 05:52] LABS: ANION GAP 6 mmol/L (5-15); CHLORIDE 103 mmol/L (98-107)
[2018-01-18 05:54] LABS: CREATININE 1.25 mg/dL (0.55-1.02)
[2018-01-18 06:56] VITALS: BP 99/62
[2018-01-18] MEDS: ASPIRIN 81 MG TABLET EC PO SCH (08:27)
[2018-01-18] MEDS: POTASSIUM CHLORIDE 20 MEQ TAB.ER.PRT PO SCH (08:27)
[2018-01-18] MEDS: TIZANIDINE 4MG TABLET PO SCH ×3 (08:28→22:13)
[2018-01-18] MEDS: DOCUSATE 100 MG CAPSULE PO SCH (08:29)
[2018-01-18] MEDS: LACTOBACILLUS CHEW TABLET PO SCH ×3 (08:30→16:51)
[2018-01-18] MEDS: TAMOXIFEN 10 MG TABLET PO SCH (08:31)
[2018-01-18] MEDS: MUPIROCIN OINT 2%, 22GM NAS SCH (08:32)
[2018-01-18] MEDS: SODIUM CHLORIDE FLUSH 10ML SYR IVF SCH ×2 (08:34→22:13)
[2018-01-18] MEDS: WARFARIN BIOPROSTHETIC VALVE PROTOCOL 2-3 XX SCH (08:35)
[2018-01-18 12:03] VITALS: BP 90/56
[2018-01-18] MEDS ORDERED: FUROSEMIDE 20 MG/2 ML IV ONE (15:30)
[2018-01-18] MEDS ORDERED: POTASSIUM CHLORIDE 20 MEQ TAB.ER.PRT PO ONE (15:30)
[2018-01-18] MEDS: FENTANYL REMOVE PATCH NOTE XX SCH (17:00)
[2018-01-18 17:58] VITALS: BP 88/60
[2018-01-18] MEDS ORDERED: WARFARIN 7.5 MG TABLET PO-COUM ONE (18:00)
[2018-01-18] MEDS: METOPROLOL TARTRATE 25 MG TABLET PO SCH (18:00)
[2018-01-18] MEDS: FENTANYL 50 MCG PATCH TD SCH (18:05)
[2018-01-18 19:08] VITALS: BP 90/58
[2018-01-18] MEDS: VENLAFAXINE 75 MG CAP ER PO SCH (22:14)
[2018-01-19 00:42] VITALS: BP 82/47
[2018-01-19 02:15] VITALS: BP 106/67
[2018-01-19] MEDS: OXYcodone IR 5MG TABLET PO PRN ×4 (02:19→16:18)
[2018-01-19] MEDS: METOPROLOL TARTRATE 25 MG TABLET PO SCH (05:31)
[2018-01-19 06:23] LABS: ANION GAP 6 mmol/L (5-15); CALCIUM 8.3 mg/dL (8.5-10.1); CHLORIDE 105 mmol/L (98-107)
[2018-01-19 06:25] LABS: CREATININE 1.26 mg/dL (0.55-1.02); INTERNATIONAL NORMALIZED RATIO 2.11 (0.93-1.1); PROTHROMBIN TIME 21.4 Seconds (9.6-11.5)
[2018-01-19 07:45] VITALS: BP 100/67
[2018-01-19] MEDS: WARFARIN BIOPROSTHETIC VALVE PROTOCOL 2-3 XX SCH (09:00)
[2018-01-19] MEDS ORDERED: TIZANIDINE 2MG TABLET ONE ×2 (09:29→16:17)
[2018-01-19] MEDS: LACTOBACILLUS CHEW TABLET PO SCH ×3 (09:31→16:18)
[2018-01-19] MEDS: DOCUSATE 100 MG CAPSULE PO SCH (09:32)
[2018-01-19] MEDS: ASPIRIN 81 MG TABLET EC PO SCH (09:32)
[2018-01-19] MEDS: TIZANIDINE 4MG TABLET PO SCH ×2 (09:33→16:18)
[2018-01-19] MEDS: SODIUM CHLORIDE FLUSH 10ML SYR IVF SCH (09:33)
[2018-01-19] MEDS: TAMOXIFEN 10 MG TABLET PO SCH (09:46)
[2018-01-19] MEDS ORDERED: WARF5TAB PO-COUM (10:37)
[2018-01-19] MEDS ORDERED: DOCU-131 PO (10:37)
[2018-01-19] MEDS ORDERED: ASPI-621 PO (10:37)
[2018-01-19] MEDS ORDERED: BUME1TAB21 PO (12:51)
[2018-01-19] MEDS ORDERED: POTASSIUM CHLORIDE 20 MEQ TAB.ER.PRT PO ONE (14:00)
[2018-01-19] MEDS ORDERED: WARFARIN 5 MG TABLET PO-COUM ONE (18:00)
== END 2018-01-19 17:36 | disposition home health service (06) | DRG 216 ==
LOC: 5SO 11:42 → CSU 01-13 07:43 → 5SO 01-15 13:50
PROVIDERS: ADMIT Internal Medicine Cardiovascular Disease; ATTEND Internal Medicine Cardiovascular Disease
PROC: 4A023N7 Measurement of Cardiac Sampling and Pressure, Left Heart, Percutaneous Approach (ICD-10-PCS; principal; 2018-01-11)
PROC: B2111ZZ Fluoroscopy of Multiple Coronary Arteries using Low Osmolar Contrast (ICD-10-PCS; 2018-01-11)
PROC: 02RG08Z Replacement of Mitral Valve with Zooplastic Tissue, Open Approach (ICD-10-PCS; 2018-01-13)
PROC: 02580ZZ Destruction of Conduction Mechanism, Open Approach (ICD-10-PCS; 2018-01-13)
PROC: 02UJ08Z Supplement Tricuspid Valve with Zooplastic Tissue, Open Approach (ICD-10-PCS; 2018-01-13)
PROC: 5A1221Z Performance of Cardiac Output, Continuous (ICD-10-PCS; 2018-01-13)
PROC: 02B70ZK Excision of Left Atrial Appendage, Open Approach (ICD-10-PCS; 2018-01-13)
PROC: B24BZZ4 Ultrasonography of Heart with Aorta, Transesophageal (ICD-10-PCS; 2018-01-13)
PROC: 0JH606Z Insertion of Pacemaker, Dual Chamber into Chest Subcutaneous Tissue and Fascia, Open Approach (ICD-10-PCS; 2018-01-17)
PROC: 02H63JZ Insertion of Pacemaker Lead into Right Atrium, Percutaneous Approach (ICD-10-PCS; 2018-01-17)
PROC: 02HK3JZ Insertion of Pacemaker Lead into Right Ventricle, Percutaneous Approach (ICD-10-PCS; 2018-01-17)
DX: I08.1 Rheumatic disorders of both mitral and tricuspid valves (principal); J96.00 Acute respiratory failure, unspecified whether with hypoxia or hypercapnia; N18.4 Chronic kidney disease, stage 4 (severe); D68.69 Other thrombophilia; I42.9 Cardiomyopathy, unspecified; I50.42 Chronic combined systolic (congestive) and diastolic (congestive) heart failure; I44.2 Atrioventricular block, complete; D63.8 Anemia in other chronic diseases classified elsewhere; E61.1 Iron deficiency; E87.6 Hypokalemia; G47.00 Insomnia, unspecified; G89.18 Other acute postprocedural pain; G89.29 Other chronic pain; I48.2 Chronic atrial fibrillation; I49.5 Sick sinus syndrome; M19.90 Unspecified osteoarthritis, unspecified site; Z51.5 Encounter for palliative care; Z79.01 Long term (current) use of anticoagulants; Z79.810 Long term (current) use of selective estrogen receptor modulators (SERMs); Z98.84 Bariatric surgery status; Z92.3 Personal history of irradiation; Z90.710 Acquired absence of both cervix and uterus; Z87.891 Personal history of nicotine dependence; Z85.3 Personal history of malignant neoplasm of breast; Z82.0 Family history of epilepsy and other diseases of the nervous system; Z80.42 Family history of malignant neoplasm of prostate; Z88.2 Allergy status to sulfonamides; Z88.8 Allergy status to other drugs, medicaments and biological substances
CPT/HCPCS: 33208; 36415; 36600; 71045; 71046; 80048; 80053; 81003; 82040; 82306; 82330; 82607; 82728; 82800; 82803; 82810; 82947; 82962; 83036; 83540; 83550; 83735; 84132; 84295; 84439; 84443; 84466; 85014; 85018; 85025; 85049; 85347; 85520; 85610; 85730; 86850; 86900; 86923; 87081; 88305; 93005; 93312; 93321; 93325; 93458; 93880; 94002; 94010; 94150; 99156; 99157; C1769; C1779; C1785; C1892; C1894; J0690; J0697; J1644; J1756; J1815; J2250; J2704; J3010; J3370; J3475; J3480; J3490; J7070; P9045; P9047; C1751; C1760; J0171; J1940; J2370; J2930; J7050; Q9967

== ENCOUNTER → 2020-03-15 | Outpatient (CLI) | payer MEDICARE ==
[~2020-03-15] MED LIST changes: +ASPI81TA45 PO; -BUME0.5T PO; +BUME0.5T2 PO; +BUME1TAB21 PO; +DOCU-131 PO; -SPIR25TA3 PO; +SPIR25TA5 PO; +WARF5TAB2 PO-COUM
== END | disposition home or self-care (01) ==
LOC: CFH 10:42
PROVIDERS: ATTEND Internal Medicine Cardiovascular Disease
DX: I35.8 Other nonrheumatic aortic valve disorders (principal); I42.9 Cardiomyopathy, unspecified
CPT/HCPCS: 93306